=== PATIENT | female | born 1955 | race Caucasian/White ===

== ENCOUNTER 2018-04-30 15:42 | Inpatient (IN) | payer OTHER ==
[~2018-04-30] VITALS: Ht 157.5 cm; Wt 61.2 kg
[2018-04-30] MEDS ORDERED: OMEP40CA37 PO (15:55)
[2018-04-30] MEDS ORDERED: DULO60CA45 PO (15:55)
[2018-04-30] MEDS ORDERED: ESZO3TAB27 PO (15:55)
[2018-04-30 17:21] LABS: BASOPHILS # (AUTO) 0.1 K/uL (0.0-8.0); BASOPHILS % (AUTO) 0.5 % (0.0-2.0); EOSINOPHILS # (AUTO) 0.5 K/uL (0.0-0.7); EOSINOPHILS % (AUTO) 3.8 % (0.0-7.0); HEMATOCRIT 42.5 % (31.2-41.9); HEMOGLOBIN 14.2 g/dL (10.9-14.3); LYMPHOCYTES # (AUTO) 2.1 K/uL (20.0-40.0); LYMPHOCYTES % (AUTO) 17.3 % (20.5-51.5); MEAN CORPUSCULAR HEMOGLOBIN 28.8 uug (24.7-32.8); MEAN CORPUSCULAR HGB CONC 34 g/dL (32.3-35.6); MEAN CORPUSCULAR VOLUME 85.9 fL (75.5-95.3); MONOCYTES # (AUTO) 0.7 K/uL (2.0-10.0); MONOCYTES % (AUTO) 5.4 % (0.0-11.0); PLATELET COUNT (AUTO) 333 K/uL (179-408); RED BLOOD CELL COUNT(AUTO) 4.95 MIL/uL (3.63-4.92); WHITE BLOOD COUNT (AUTO) 12.4 K/uL (3.8-11.8)
[2018-04-30 17:24] LABS: CREATININE 0.9 mg/dL (0.6-1.3); POTASSIUM 4.1 mmol/L (3.5-5.1)
[2018-04-30 17:30] LABS: BILIRUBIN,DIRECT 0.1 mg/dL (0.0-0.2); BILIRUBIN,TOTAL 0.3 mg/dL (0.2-1.0); TOTAL PROTEIN, SERUM 5.6 g/dL (6.4-8.2)
[2018-04-30] MEDS ORDERED: ACETAMINOPHEN 325 MG TABLET PO ONE (17:45)
[2018-04-30] MEDS ORDERED: ACETAMINOPHEN ES 500 MG TABLET ONE (17:53)
--- NOTE | 2018-04-30 18:45 | NUR ---
PT AMBUALTING WITH STEADY GAIT, NO SIGN OF DISTRESS.
--- NOTE | 2018-04-30 19:21 | NUR ---
HANDSS OFF REPORT GIVEN TO SIMARN FUENTES
--- NOTE | 2018-04-30 19:22 | NUR ---
[facility] PROVIDED FOR PT.
[2018-04-30] MEDS ORDERED: IV NORMAL SALINE 100 ML ONE (19:53)
[2018-04-30] MEDS ORDERED: SWABABLE VALVE TRANSFER SET EA MC ONE (19:53)
[2018-04-30] MEDS ORDERED: IOHEXOL 350 100 ML INFUS..BTL ONE (19:53)
[2018-04-30] MEDS ORDERED: NORMAL SALINE FLUSH 10 ML DISP.SYRIN ONE (19:53)
--- NOTE | 2018-04-30 20:00 | NUR ---
Pt. admitted to TELE, under care of Dr. MENDOZA Belongs List completed
[2018-04-30 20:15] VITALS: BP 103/65
--- NOTE | 2018-04-30 20:30 | NUR ---
NEW ADMIT FROM ER, ADMITTED FOR SYNCOPE. DENIES DIZZINESS OR FAINTNESS AT PRESENT. PATIENT ON TELE WITH SR AT 75. NO C/O PAIN OR DISTRESS ON ASSESSMENT. SAFETY MEASURES INITIATED, CALL LIGHT LEFT WITHIN PATIENT'S REACH
[2018-04-30] MEDS ORDERED: ONDANSETRON 4 MG/2 ML VIAL IV PRN (22:30)
[2018-04-30] MEDS ORDERED: Z GUARD REMEDY PASTE 57 GM TUBE TOP PRN (22:30)
[2018-04-30] MEDS ORDERED: MAGNESIUM HYDROXIDE 30 ML LIQUID UDC PO PRN (22:30)
[2018-04-30] MEDS ORDERED: ACETAMINOPHEN 325 MG TABLET PO PRN (22:30)
[2018-04-30] MEDS ORDERED: HYDROCODONE/APAP 5-325MG TABLET PO PRN (22:30)
[2018-04-30] MEDS: IV NS 1000 ML 1,000 ML IV PRN (23:55)
[2018-05-01] VITALS: BP 145/82
[2018-05-01] MEDS: IV NS 1000 ML 1,000 ML IV PRN (00:11)
[2018-05-01 04:00] VITALS: BP 107/51
[2018-05-01 05:15] LABS: BASOPHILS # (AUTO) 0.1 K/uL (0.0-8.0); BASOPHILS % (AUTO) 0.5 % (0.0-2.0); EOSINOPHILS # (AUTO) 1.2 K/uL (0.0-0.7); EOSINOPHILS % (AUTO) 9.7 % (0.0-7.0); HEMATOCRIT 35.7 % (31.2-41.9); HEMOGLOBIN 12.1 g/dL (10.9-14.3); LYMPHOCYTES # (AUTO) 4.9 K/uL (20.0-40.0); LYMPHOCYTES % (AUTO) 40.9 % (20.5-51.5); MEAN CORPUSCULAR HEMOGLOBIN 28.6 uug (24.7-32.8); MEAN CORPUSCULAR HGB CONC 34 g/dL (32.3-35.6); MEAN CORPUSCULAR VOLUME 84.4 fL (75.5-95.3); MONOCYTES # (AUTO) 0.7 K/uL (2.0-10.0); MONOCYTES % (AUTO) 5.6 % (0.0-11.0); NEUTROPHILS # (AUTO) 5.2 K/uL (1.8-8.9); NEUTROPHILS % (AUTO) 43.3 % (38.5-71.5); PLATELET COUNT (AUTO) 308 K/uL (179-408); RED BLOOD CELL COUNT(AUTO) 4.23 MIL/uL (3.63-4.92); WHITE BLOOD COUNT (AUTO) 11.9 K/uL (3.8-11.8)
[2018-05-01 05:31] LABS: THYROID STIMULATING HORMONE 12.404 mIU/mL (0.358-3.740)
[2018-05-01 05:38] LABS: BILIRUBIN,TOTAL 0.3 mg/dL (0.2-1.0); CREATININE 0.8 mg/dL (0.6-1.3); MAGNESIUM 2.2 mg/dL (1.8-2.4); PHOSPHOROUS 3.9 mg/dL (2.5-4.9); POTASSIUM 3.5 mmol/L (3.5-5.1); TOTAL PROTEIN, SERUM 5.1 g/dL (6.4-8.2)
--- NOTE | 2018-05-01 06:10 | NUR ---
PATIENT SLEPT WELL THROUGH THE SHIFT, PAIN MEDS GIVEN X1. NO C/O OF DIZZINESS OR FAINTNESS REPORTED ON THIS SHIFT. SAFETY MEASURES MAINTAINED AT ALL TIMES
[2018-05-01] MEDS ORDERED: NICOTINE 21 MG/24HR PATCH TD SCH (10:00)
[2018-05-01] MEDS ORDERED: PANTOPRAZOLE SODIUM 40 MG TABLET.DR PO SCH (10:08)
[2018-05-01] MEDS ORDERED: Medication Not On Formulary EA (Omeprazole 40 MG) PO SCH (10:15)
[2018-05-01] MEDS ORDERED: Medication Not On Formulary EA (Eszopiclone (Lunesta) 3 MG) PO SCH (10:15)
[2018-05-01] MEDS ORDERED: DULOXETINE 60 MG CAPSULE.DR PO SCH (10:15)
--- NOTE | 2018-05-01 10:50 | NUR ---
PATIENT DISCHARGED TO HOME. DISCHARGE INSTRUCTIONS/PATIENT TEACHINGS PROVIDED, PT VERBALIZED UNDERSTANDING. BELONGING LIST DONE AND ACCOUNTED FOR, IV ACCESS AND ID BAND REMOVED. PT AWAITING FOR TRANSPORTATION, WILL BE PICKED UP BY DAUGHTER. PT STATED WILL SET UP OWN FOLLOW UP APPT WITH PCP. PT HAD NO QUESTIONS FOR INHOUSE PHARMACY.
--- NOTE | 2018-05-01 11:05 | NUR ---
PT INFORMED RN REGARDING A PRESCRIPTION (SPIRIVA) UPON DISCHARGE. CALLED MD TO OBTAIN PRESCRIPTION. PT LEFT IN A HURRY TRANSPORTATION WAITING FOR HER DOWNSTAIRS AND PREFERS THAT SPIRIVA PRESCRIPTION BE SENT OVER TO HER PHARMACY IN [facility].
[2018-05-01 11:09] VITALS: BP 118/73
--- NOTE | 2018-05-01 11:56 | NUR ---
2nd CALL TO MD REGARDING PATIENT'S REQUEST FOR SPIRIVA PRESCRIPTION. WAITING FOR CALL BACK.
--- NOTE | 2018-05-01 12:05 | NUR ---
RECEIVED TELEPHONE ORDER FROM FOR SPIRIVA HAND HELD 1 PUFF QDAY FOR 1 MONTH SUPPLY OR 30 DAYS. READ BACK COMPLETE. T/O ORDER DONE AND PLACED IN PATIENT'S CHART. INFORMED PT'S PHARMACY [facility], PRESCRIPTION FAXED. PATIENT INFORMED.
[2018-05-01] MEDS ORDERED: DULOXETINE 30 MG CAPSULE.DR PO SCH (21:00)
== END 2018-05-01 11:05 | disposition home or self-care (01) | DRG 48 ==
LOC: ER 15:43 → TELE 19:59 → MED 05-01 10:30
PROVIDERS: ADMIT Internal Medicine; ATTEND Internal Medicine
DX: G90.8 Other disorders of autonomic nervous system (principal); E27.8 Other specified disorders of adrenal gland; E03.9 Hypothyroidism, unspecified; F41.9 Anxiety disorder, unspecified; K21.9 Gastro-esophageal reflux disease without esophagitis; K44.9 Diaphragmatic hernia without obstruction or gangrene; Z88.2 Allergy status to sulfonamides; J44.9 Chronic obstructive pulmonary disease, unspecified; F17.210 Nicotine dependence, cigarettes, uncomplicated; R79.1 Abnormal coagulation profile; I10 Essential (primary) hypertension
CPT/HCPCS: 36415; 70030-TC; 70450; 71045; 71275; 83605; 83735; 84100; 84443; 85025; 85730; 87040; 93005; 93307; 93880; A4663; A9150; J3490; J7030; Q9967